=== PATIENT | female | born 1975 | race American Indian/Alaskan Native ===

== ENCOUNTER 2023-12-09 11:02 | Emergency (ER) | payer MEDICAID ==
[2023-12-09] MEDS: diphenhydrAMINE 50 MG/ML SDV IVPUSH ONE (12:31)
[2023-12-09] MEDS: Metoclopramide 10 MG/2 ML SDV IVPUSH ONE (12:31)
[2023-12-09] MEDS: Ketorolac 15 MG/ML SDV IVPUSH ONE (12:31)
[2023-12-09] MEDS: Sodium Chloride 0.9% 1,000 ML IV SCH (12:32)
[2023-12-09] MEDS: Acetaminophen/oxyCODONE 325-10 MG Tab PO PRN (13:31)
[2023-12-09] MEDS: Cyclobenzaprine 10 MG Tab PO ONE (13:31)
== END 2023-12-09 14:37 | disposition home or self-care (01) ==
LOC: JP.ED 11:02
DX: G43.909 Migraine, unspecified, not intractable, without status migrainosus (principal); M62.838 Other muscle spasm; Z90.49 Acquired absence of other specified parts of digestive tract; Z79.899 Other long term (current) drug therapy; Z88.0 Allergy status to penicillin; Z88.1 Allergy status to other antibiotic agents; Z88.2 Allergy status to sulfonamides
CPT/HCPCS: 70450; 96361; 96374; 96375; 99283; A9270; J1200; J1885; J2765; J7030

== ENCOUNTER 2024-02-08 19:20 | Emergency (ER) | payer MEDICAID ==
[2024-02-08 19:41] LABS: EOSINOPHILS ABSOLUTE AUTO 0.61 K/uL (0.00-0.40); EOSINOPHILS PERCENT AUTO 6.2 % (0.0-5.4); HEMATOCRIT 42.4 % (34.3-46.0); IMMATURE GRAN ABSOLUTE AUTO 0.04 K/uL (0.00-0.23); IMMATURE GRAN PERCENT AUTO 0.4 % (0.0-0.7); LYMPHOCYTES ABSOLUTE AUTO 3.67 K/uL (0.8-3.3); LYMPHOCYTES PERCENT AUTO 37.1 % (11.4-47.7); MEAN CORPUSCULAR HEMOGLOBIN 30.8 pg (31.6-35.5); MEAN CORPUSCULAR HGB CONC 35.4 g/dL (31.6-35.5); MEAN CORPUSCULAR VOLUME 87.1 fL (81.4-99.0); MONOCYTES ABSOLUTE AUTO 0.48 K/uL (0.20-0.90); MONOCYTES PERCENT AUTO 4.8 % (3.3-12.6); NEUTROPHILS PERCENT AUTO 50.5 % (40.0-78.1); PLATELET COUNT,PLT 346 K/uL (130-375); RED BLOOD CELL COUNT 4.87 M/uL (3.77-5.24); WHITE BLOOD CELL COUNT,WBC 9.9 K/uL (3.2-11.0)
[2024-02-08] MEDS ORDERED: Naloxone 0.4 MG/ML SDV IVPUSH PRN (19:57)
[2024-02-08 20:03] LABS: ALANINE AMINOTRANSFERASE,ALT 66 U/L (12-78); ALBUMIN 3.7 g/dL (3.4-5.0); ALKALINE PHOSPHATASE 111 U/L (46-116); ANION GAP 12.7 mmol/L (5.0-14.0); ASPARTATE AMNIOTRANSFERASE,AST 32 U/L (15-37); BILIRUBIN TOTAL 0.5 mg/dL (0.2-1.0); BLOOD UREA NITROGEN,BUN 10 mg/dL (7-18); C-REACTIVE PROTEIN < 0.50 mg/dL (<0.50); CALCIUM 8.9 mg/dL (8.5-10.1); CARBON DIOXIDE,CO2 24 mmol/L (21-32); CHLORIDE,CL 105 mmol/L (100-108); EST CRCL DRUG DOSING (CG) 66.18 mL/min; ESTIMATED GFR 69 mL/min (>60); GLUCOSE RANDOM 117 mg/dL (74-106); POTASSIUM,K 3.7 mmol/L (3.6-5.2); PROTEIN TOTAL,TP 7.5 g/dL (6.4-8.2); SODIUM,NA 142 mmol/L (140-148)
[2024-02-08 20:08] LABS: LACTIC ACID 1.3 mmol/L (0.4-2.0)
[2024-02-08] MEDS: fentaNYL 100 MCG/2 ML SDV IVPUSH ONE (20:14)
[2024-02-08] MEDS: Ondansetron 4 MG/2 ML SDV IVPUSH ONE (20:14)
[2024-02-08] MEDS: Sodium Chloride 0.9% 1,000 ML IV ONE (20:14)
[2024-02-08] MEDS: Sodium Chloride 0.9% 60 ML IV SCH (20:35)
[2024-02-08] MEDS: Iopamidol 612 MG/ML 100 ML Bottle IV SCH (20:35)
[2024-02-08 20:36] LABS: APPEARANCE,URINE CLEAR (CLEAR); BILIRUBIN,URINE NEGATIVE (NEGATIVE); COLOR,URINE YELLOW (YELLOW); GLUCOSE,URINE NEGATIVE (NEGATIVE); KETONES,URINE NEGATIVE (NEGATIVE); LEUKOCYTE ESTERASE,URINE NEGATIVE (NEGATIVE); NITRITE,URINE NEGATIVE (NEGATIVE); OCCULT BLOOD,URINE NEGATIVE (NEGATIVE); PH,URINE 5.5 (5.0-8.0); PROTEIN,URINE NEGATIVE (NEGATIVE); UROBILINOGEN,URINE 0.2 EU/dL (0.2-1.0)
[2024-02-08 20:48] LABS: AMORPHOUS SEDIMENT,URINE NOT SEEN; BACTERIA,URINE RARE; EPITHELIAL CELLS,URINE RARE; MUCUS,URINE NOT SEEN; RBC,URINE 0-5 (0-5); WBC,URINE 0-5 (0-5)
== END 2024-02-08 21:46 | disposition home or self-care (01) ==
LOC: JP.ED 19:20
DX: K63.89 Other specified diseases of intestine (principal); Z86.16 Personal history of COVID-19; Z90.49 Acquired absence of other specified parts of digestive tract; Z87.891 Personal history of nicotine dependence; Z88.0 Allergy status to penicillin; Z88.1 Allergy status to other antibiotic agents; Z88.2 Allergy status to sulfonamides; Z79.899 Other long term (current) drug therapy
CPT/HCPCS: 36415; 74177; 80053; 81001; 83605; 83690; 85025; 86140; 96361; 96374; 96375; 99284; J2405; J3010; J3490; J7030; Q9967